=== PATIENT | female | born 1970 | race Caucasian/White ===

== ENCOUNTER 2024-09-07 12:03 | Outpatient (REF) | payer OTHER, SELFPAY | END 2024-09-07 12:04 | disposition home or self-care (01) | LOC: CF 12:03 | DX: Z13.89 Encounter for screening for other disorder (principal) ==

== ENCOUNTER → 2024-09-09 12:47 | Outpatient (AMB) | payer OTHER, SELFPAY | END | disposition home or self-care (01) | PROVIDERS: Referring Provider Physical Medicine & Rehabilitation; Visit Provider Physician Assistant | CPT/HCPCS: 99204 ==

== ENCOUNTER 2024-10-28 13:22 | Outpatient (AMB) | payer OTHER, SELFPAY ==
--- NOTE | 2024-10-28 13:30 | HO.SPINEOV ---
Intake Visit Reasons: MRI f/u with in office Intake Note: Ms. Petty is here today to F/u on the results of her MRI. Communications Instructor Required: No Allergies No Known Allergies Allergy (Verified 10/28/24 13:41) Assessment & Plan Assessment & Plan (1) Back pain: Code(s): M54.9 - Dorsalgia, unspecified Category: Medical Plan Mrs Petty is back in the office in follow-up. We reviewed her new lumbar MRI that she had just a few days ago with the [facility] and compared it to the 1 done last year loaded into our system here at [place] and it shows a reduction in the herniated disc at L5-S1. This is helpful in the sense that it shows that this is most likely the source of her pain, but it takes off the table the more minor procedure we were going to do with a simple diskectomy. Dr. Guzman and I met with her at length discuss the option of an anterior lumbar interbody fusion, all risks and benefits were discussed. We will need her to meet with our access surgeon Dr. Casanova prior to surgery if she wishes to consider it. We quoted success rate at 60-70%. She also has the option to continue with conservative treatment, however she feels as though she has exhausted everything. She will call us and let us know how she would like to proceed. Total amount of time spent in this visit was 20 minutes in discussion of symptoms, lumbar MRI imaging results and subsequent plan of care Hunter Guzman MD,PhD [facility] Orders: Orders XR lumbar spine 4V min Today M54.9 - Dorsalgia, unspecified Coding Level of Care Code Est Pt Level 3 (58723) Diagnoses Back pain M54.9
== END 2024-10-28 15:14 | disposition home or self-care (01) ==
LOC: HO.HNS 13:23
PROVIDERS: Visit Provider Physician Assistant
DX: M54.9 Dorsalgia, unspecified (principal)
CPT/HCPCS: 99213

== ENCOUNTER 2024-10-28 13:22 | Outpatient (REF) | payer OTHER, SELFPAY ==
--- NOTE | ~2024-10-28 | XR_ITS ---
EXAMINATION: XR LUMBAR SPINE 4 OR MORE VIEWS HISTORY: M54.9 - Dorsalgia, unspecified COMPARISON: There are no prior studies for comparison. FINDINGS: AP, and neutral, flexion, and extension lateral views of the lumbar spine are submitted. Osseous mineralization is normal. Five nonrib-bearing lumbar vertebral bodies are identified, maintaining normal height without evidence of fracture or spondylolisthesis. There is mild dextroscoliosis. The intervertebral disc spaces are preserved. There is mild osteophytosis of the facet joints. There is no abnormal motion with flexion or extension The visualized paraspinal soft tissues are unremarkable. XR/XR lumbar spine 4V min IMPRESSION: Mild dextroscoliosis. Otherwise unremarkable examination of the lumbar spine. There is no abnormal motion with flexion or extension. Electronically signed by: Matthew Barksdale MD 10/31/2024 08:37 AM EDT
== END 2024-10-28 13:23 | disposition home or self-care (01) ==
LOC: HO.HOSX 13:22
PROVIDERS: Visit Provider Physician Assistant
DX: M54.9 Dorsalgia, unspecified (principal)
CPT/HCPCS: 72110

== ENCOUNTER → 2024-10-28 14:43 | Outpatient (BNV) | payer OTHER, SELFPAY | PROVIDERS: Visit Provider Radiology Diagnostic Radiology | DX: M54.9 Dorsalgia, unspecified (principal) | CPT/HCPCS: 72110 ==

== ENCOUNTER 2024-12-13 | Outpatient (REF) | payer OTHER, SELFPAY ==
[2024-12-13 13:31] VITALS: BP 115/74; PULSE 72; RESP 18; O2SAT 97; BMI 23.6
--- NOTE | 2024-12-13 13:50 | HO.ANESPROP2 ---
HPI - Anesthesia Eval Consult details Narrative: Pending insurance 54yo M for L5-S1 Ant Lumbar Interbody Fusion, 12/27/24 No recent illness No CP/SOB with walking Seizures: last 20 years ago, rx'd with lamotrigine PMFSH Active Problems Active Problems: All Active Problems Back pain (Acute) Past Medical History Medical History (Updated 12/13/24 @ 13:17 by Kristyn Ariza RN) Kidney stone Migraine Anxiety Seizures History of headache Osteoporosis Leukopenia Condyloma acuminata Cervical dysplasia Right nephrolithiasis Atrophic vaginitis Dyspareunia in female Cervicitis Bacterial vaginosis Degenerative disc disease at L5-S1 level Urine abnormality Family History Family history of problems with anesthesia: No Surgical History Surgical History (Updated 12/13/24 @ 13:17 by Kristyn Ariza RN) Hx of tubal ligation Hx of breast augmentation History of carpal tunnel surgery of left wrist H/O colonoscopy History of Problems with Anesthesia: No Social History Social History Are you a primary assurance services manager health care to a significant other at home: No Do you presently have visiting nurse or other home services: No Patient Tobacco Use Status: Never used Tobacco Use of substances other than those prescribed or required for medical reasons: Yes Substance Use Frequency: Occasionally Have you been hit, kicked, punched, or otherwise hurt by someone within the past year? If so, by whom?: No Are you DNR?: No Advance Directives: No Advance Directives Information Provided: No Advance Directives on File: No Patient : No : No Poor oral hygiene: No Meds Allergies Allergy/AdvReac Type Severity Reaction Status Date / Time No Known Allergies Allergy Verified 10/28/24 13:41 Home Medications ?Medication ?Instructions ?Recorded ?Confirmed ?Last Taken ?Type boron aspartate 3 mg (as 3 mg PO BID 12/13/24 12/13/24 Unknown History aspartate) capsule (Moroni Complex) calcium carbonate 300 mg PO BID 12/13/24 12/13/24 Unknown History cholecalciferol (vitamin D3) 25 25 mcg PO BID 12/13/24 12/13/24 Unknown History mcg (1,000 unit) tablet cyanocobalamin (vitamin B-12) 50 50 mcg PO BID 12/13/24 12/13/24 Unknown History mcg tablet (Vitamin B-12) estradiol 0.01% (0.1 mg/gram) 1 appl vaginal Q OTHER DAY 12/13/24 12/13/24 Unknown History vaginal cream estradiol 0.05 mg-norethindrone 1 patch transdermal 2XW 12/13/24 12/13/24 Unknown History 0.25 mg/24 hr semiwkly transderm patch (CombiPatch) folic acid 1 mg tablet 1 mg PO BID 12/13/24 12/13/24 Unknown History lamotrigine 100 mg tablet 100 mg PO BEDTIME 12/13/24 12/13/24 Unknown History magnesium 100 mg tablet 100 mg PO BID 12/13/24 12/13/24 Unknown History pyridoxine (vitamin B6) 25 mg 25 mg PO BID 12/13/24 12/13/24 Unknown History tablet (Vitamin B-6) rimegepant 75 mg disintegrating 75 mg PO Q OTHER DAY 12/13/24 12/13/24 Unknown History tablet (Nurtec ODT) rizatriptan 10 mg disintegrating 10 mg PO DAILY PRN Headache 12/13/24 12/13/24 Unknown History tablet Exam Height,Weight and Vital Signs: Height 5 ft 3 in Weight 60.328 kg Last Vital Signs Pulse 72 12/13/24 13:31 Resp 18 12/13/24 13:31 BP 115/74 12/13/24 13:31 Pulse Ox 97 12/13/24 13:31 O2 Del Method Room Air 12/13/24 13:31 Airway TM Dist: >3cm Neck ROM: Full Loose/Missing/Broken Teeth: No Heart: RRR Lungs: CTAB Assessment and Plan Assessment Anesthesia Assessment: Anesthesia Plan Discussed and PAT Visit Final Anesthetic Review Family History of Problems with Anesthesia: No History of Problems with Anesthesia: No
[2024-12-13 15:02] LABS: Hematocrit 39.9 % (37.0-47.0); Mean Corpuscular HGB Conc 35.1 g/dl (31.0-35.0); Mean Corpuscular Hemoglobin 31.7 pg (27.0-33.0); Mean Corpuscular Volume 90.3 fL (80.0-98.0); Mean Platelet Volume 10.5 fL (9.4-12.3); Platelet Count 274 X10*3/uL (160-400); Red Blood Count 4.42 X10*6/uL (4.20-5.50); Red Cell Distribution Width 12.1 % (11.0-16.0); White Blood Count 4.8 X10*3/uL (4.8-10.8)
[2024-12-13 15:44] LABS: Anion Gap 12 (12-20); Blood Urea Nitrogen 16 mg/dL (9-16); Calcium 9.6 mg/dL (8.4-10.2); Carbon Dioxide 27 mmol/L (22-29); Chloride 106 mmol/L (96-108); Creatinine Clr Calc Pharmacy 64.9; Estimated Glomerular Filt Rate > 60; Glucose Random 74 mg/dL (60-115); Potassium 4.1 mmol/L (3.3-5.1); Sodium 141 mmol/L (135-145)
--- OUTSIDE RECORDS SUMMARY | 2025-01-30 13:47 | XMS_ITS | Clinical Summary ---
Author Organization [facility] Facility Address [address] [place] [address] Care Team Providers Care Enameler Name Role Phone Pete Patino MD Primary Care Provider [phone] Allergies No known active allergies Medications Rimegepant Sulfate (NURTEC PO) Take by mouth Active LAMOTRIGINE PO Take by mouth Active Estradiol-Noreth indrone Acet (COMBIPATCH TD) Place on the skin Active RIZATRIPTAN BENZOATE PO Take by mouth Active Active Problems Problem Noted Date Diagnosed Date Dorsalgia 11/08/2024 Migraine 11/08/2024 Epilepsy 11/08/2024 Osteoporosis 11/08/2024 Carpal tunnel syndrome 11/08/2024 History of augmentation of breast 11/08/2024 Encounters Date Type Department Care Team Description 12/21/2024 2:00 PM EDT Office Visit [facility] [address] [place] [address] [place] [address] Rosalio Casanova MD Degeneration of lumbar intervertebral disc (Primary Dx) from Last 3 Months Social History Tobacco Use Types Packs/Day Years Used Date Smoking Tobacco: Never Assessed Comments Unknown Sex and Gender Information Value Date Recorded Sex Assigned at Not on file Legal Sex Female 2:37 PM EDT Gender Identity Not on file Sexual Orientation Not on file Plan of Treatment Health Maintenance Due Date Last Done Comments Breast Cancer Screening 1969 Hepatitis B Vaccine (1 of 3 - 19+ 3-dose series) 06/02 Colorectal Cancer Screening: Annual FOBT 2018 Colorectal Cancer Screening: Colonoscopy 2018 Colorectal Cancer Screening: Sigmoidoscopy 2018 Pneumococcal Vaccine: 50+ Years (1 of 1 - PCV) 019 Influenza Vaccine (Season Ended) 2025 Insurance [facility] Care Teams Enameler Relationship Specialty Start Date End Date Pete Patino MD [address] [place] [id number] PCP - General Internal Medicine 12/21/24
== END 2024-12-13 00:01 | disposition home or self-care (01) ==
LOC: HO.PAT
PROVIDERS: Nurse Practitioner; PCP Nurse Practitioner Family; Visit Provider Neurological Surgery
DX: Z01.818 Encounter for other preprocedural examination (principal); M54.16 Radiculopathy, lumbar region; M54.9 Dorsalgia, unspecified
CPT/HCPCS: 36415; 80048; 85027; 86850; 86900; 86901

== ENCOUNTER 2025-05-30 09:28 | Inpatient (IN) | payer OTHER, SELFPAY ==
[2025-05-22 14:43] VITALS: BMI 23.0
[2025-05-30] VITALS (13 sets, daily range): BP systolic 105–129; BP diastolic 53–70; PULSE 74–90; RESP 12–25; TEMP 36.3–36.8; O2SAT 96–99; BMI 23.2; BMI 24.6
--- NOTE | ~2025-05-30 | XR_ITS ---
EXAMINATION: XR ABDOMEN KUB CLINICAL INDICATION: s/p ALIF COMPARISON: None available. TECHNIQUE: AP view of the abdomen. FINDINGS: Gas throughout the nondistended intestine. Stool within the large intestine. No air-fluid levels. Intervertebral disc spacer placement at L5-S1, no fully evaluated. 3 mm calcification overlapping the right kidney shadow. Punctate calcifications overlapping the urinary bladder. Mild degenerative changes in the coxofemoral joints and symphysis pubis. Sclerosis and the right sacroiliac joint. XR/XR abdomen 1V IMPRESSION: No intestinal obstruction pattern. Probable nephrolithiasis, right kidney. Intervertebral disc spacer at L5-S1. Electronically signed by: Gamal Dumont MD 05/30/2025 01:48 PM EDT
--- NOTE | ~2025-05-30 | FL_ITS ---
EXAMINATION: FL GUIDANCE ONLY HISTORY: L5-S1 ALIF COMPARISON: Correlation is made with plain films of the lumbar spine dated 10/20/2024. TECHNIQUE: Fluoroscopy time: 49.6 seconds. Cumulative Dose: 21.158 mGy. DAP: 6.5181 Gycm2 Images: 6. FINDINGS: Fluoroscopic spot films of the lumbar spine demonstrate posterior fusion of L5 and S1 with pedicle screws, spinal stabilization rods, and an intervertebral spacer. FL/FL guidance in OR IMPRESSION: Fluoroscopy during procedure. Please see procedure report for additional information. Electronically signed by: Matthew Barksdale MD 05/30/2025 03:56 PM EDT
--- NOTE | 2025-05-30 09:41 | PC.NURSE ---
Patient carter Estradiol patch to right lower abdomen. Ok per surgeon.
[2025-05-30] MEDS: Lactated Ringers 1,000 ML 100 ML IVCONT ×2 (10:02→21:18)
--- OUTSIDE RECORDS SUMMARY | 2025-05-30 10:57 | XMS_ITS | Clinical Summary ---
Author Organization [facility] Facility Address [address] [place] [id number] Care Team Providers Care Special Events Driver Name Role Phone Peet Patino MD Primary Care Provider [phone] Allergies No known active allergies Medications Rimegepant Sulfate (NURTEC PO) Take by mouth Active LAMOTRIGINE PO Take by mouth Active Estradiol-Noreth indrone Acet (COMBIPATCH TD) Place on the skin Active RIZATRIPTAN BENZOATE PO Take by mouth Active Active Problems Problem Noted Date Diagnosed Date Dorsalgia 11/08/2024 Migraine 11/08/2024 Epilepsy 11/08/2024 Osteoporosis 11/08/2024 Carpal tunnel syndrome 11/08/2024 History of augmentation of breast 11/08/2024 Social History Tobacco Use Types Packs/Day Years Used Date Smoking Tobacco: Never Assessed Comments Unknown Sex and Gender Information Value Date Recorded Sex Assigned at Not on file Legal Sex Female 2:37 PM EDT Gender Identity Female 05/28/2025 8:19 AM EDT Sexual Orientation Not on file Plan of Treatment Upcoming Encounters Date Type Department Care Team (Late st Contact Info) Description 05/30/2025 11:00 AM EDT Scheduled Only [facility] [address] [place] [id number] Rosalio Casanova MD [address] [place] [address] Health Maintenance Due Date Last Done Comments Breast Cancer Screening 1969 Hepatitis B Vaccine (1 of 3 - 19+ 3-dose series) 06/02 Colorectal Cancer Screening: Annual FOBT 2018 Colorectal Cancer Screening: Colonoscopy 2018 Colorectal Cancer Screening: Sigmoidoscopy 2018 Pneumococcal Vaccine: 50+ Years (1 of 1 - PCV) 019 Influenza Vaccine (#1) [address] [place] [address] Care Teams Special Events Driver Relationship Specialty Start Date End Date Pete Patino MD [address] [place] [id number] PCP - General Internal Medicine 12/21/24
--- NOTE | 2025-05-30 11:15 | HO.ANESPROP2 ---
Documented by User: Jen Burno NP 05/22/25 14:34 HPI - Anesthesia Eval Consult details Narrative: 54yo M for L5-S1 Ant Lumbar Interbody Fusion, 05/30/25 Previous PAT eval 12/2024 (rescheduled d/t insurance) No recent illness No CP/SOB with walking Seizures: last 20 years ago, rx'd with lamotrigine PMFSH Active Problems Active Problems: All Active Problems Back pain (Acute) Past Medical History Medical History Kidney stone Migraine Anxiety Seizures History of headache Osteoporosis Leukopenia Condyloma acuminata Cervical dysplasia Right nephrolithiasis Atrophic vaginitis Dyspareunia in female Cervicitis Bacterial vaginosis Degenerative disc disease at L5-S1 level Urine abnormality Family History Family history of problems with anesthesia: No Surgical History Surgical History Hx of tubal ligation Hx of breast augmentation History of carpal tunnel surgery of left wrist H/O colonoscopy History of Problems with Anesthesia: No Social History Social History Household Members: None Housing: Apartment Are you a primary wound care coordinator to a significant other at home: No Do you presently have visiting nurse or other home services: No Patient Tobacco Use Status: Never used Tobacco Second Hand Smoke Exposure: No Use of substances other than those prescribed or required for medical reasons: Yes Substance Use Type Other:: vapes marijuana Substance Use Frequency: Occasionally Have you been hit, kicked, punched, or otherwise hurt by someone within the past year? If so, by whom?: No Are you DNR?: No Advance Directives: No Advance Directives Information Provided: Yes Advance Directives on File: No Healthcare Proxy: No Patient : No : No Poor oral hygiene: No Meds Allergies Allergy/AdvReac Type Severity Reaction Status Date / Time No Known Allergies Allergy Verified 05/22/25 14:42 Home Medications ?Medication ?Instructions ?Recorded ?Confirmed ?Last Taken ?Type estradiol 0.01% (0.1 mg/gram) 1 appl vaginal Q OTHER DAY 12/13/24 05/22/25 05/23/25 History vaginal cream lamotrigine 100 mg tablet 100 mg PO BEDTIME 12/13/24 05/22/25 05/29/25 History rimegepant 75 mg disintegrating 75 mg PO Q OTHER DAY 12/13/24 05/22/25 05/29/25 History tablet (Nurtec ODT) rizatriptan 10 mg disintegrating 10 mg PO DAILY PRN Headache 12/13/24 05/22/25 05/25/25 History tablet creatine monohydrate 5,000 mg oral 5,000 mg PO DAILY 05/22/25 05/22/25 05/29/25 History powder packet estradiol 0.05 mg/24 hr semiweekly 1 patch transdermal 2XW 05/22/25 05/22/25 05/29/25 History transdermal patch progesterone micronized 100 mg 100 mg PO DAILY 05/22/25 05/22/25 05/29/25 History capsule vitamin D3 125 mcg (5,000 1 cap PO DAILY 05/22/25 05/22/25 05/29/25 History unit)-vitamin K2 100 mcg capsule Exam Pertinent Lab Results Pertinent Lab Results: Laboratory Tests 12/13/24 14:26 WBC 4.8 Hgb 14.0 Hct 39.9 Plt Count 274 Sodium 141 Potassium 4.1 Chloride 106 Carbon Dioxide 27 BUN 16 Creatinine 0.81 Assessment and Plan Assessment Anesthesia Assessment: Chart Reviewed Final Anesthetic Review Family History of Problems with Anesthesia: No History of Problems with Anesthesia: No Documented by User: Ania Delatorre DO 05/30/25 11:18 [facility] Past Medical History Medical History Kidney stone Migraine Anxiety Seizures History of headache Osteoporosis Leukopenia Condyloma acuminata Cervical dysplasia Right nephrolithiasis Atrophic vaginitis Dyspareunia in female Cervicitis Bacterial vaginosis Degenerative disc disease at L5-S1 level Urine abnormality Family History Family history of problems with anesthesia: No Surgical History Surgical History Hx of tubal ligation Hx of breast augmentation History of carpal tunnel surgery of left wrist H/O colonoscopy History of Problems with Anesthesia: No Social History Social History Household Members: None Housing: Apartment Are you a primary wound care coordinator to a significant other at home: No Do you presently have visiting nurse or other home services: No Patient Tobacco Use Status: Never used Tobacco Second Hand Smoke Exposure: No Use of substances other than those prescribed or required for medical reasons: Yes Substance Use Type Other:: vapes marijuana Substance Use Frequency: Occasionally Have you been hit, kicked, punched, or otherwise hurt by someone within the past year? If so, by whom?: No Are you DNR?: No Advance Directives: No Advance Directives Information Provided: Yes Advance Directives on File: No Healthcare Proxy: No Patient : No : No Poor oral hygiene: No Meds Allergies Allergy/AdvReac Type Severity Reaction Status Date / Time No Known Allergies Allergy Verified 05/22/25 14:42 Home Medications ?Medication ?Instructions ?Recorded ?Confirmed ?Last Taken ?Type estradiol 0.01% (0.1 mg/gram) 1 appl vaginal Q OTHER DAY 12/13/24 05/22/25 05/23/25 History vaginal cream lamotrigine 100 mg tablet 100 mg PO BEDTIME 12/13/24 05/22/25 05/29/25 History rimegepant 75 mg disintegrating 75 mg PO Q OTHER DAY 12/13/24 05/22/25 05/29/25 History tablet (Nurtec ODT) rizatriptan 10 mg disintegrating 10 mg PO DAILY PRN Headache 12/13/24 05/22/25 05/25/25 History tablet creatine monohydrate 5,000 mg oral 5,000 mg PO DAILY 05/22/25 05/22/25 05/29/25 History powder packet estradiol 0.05 mg/24 hr semiweekly 1 patch transdermal 2XW 05/22/25 05/22/25 05/29/25 History transdermal patch progesterone micronized 100 mg 100 mg PO DAILY 05/22/25 05/22/25 05/29/25 History capsule vitamin D3 125 mcg (5,000 1 cap PO DAILY 05/22/25 05/22/25 05/29/25 History unit)-vitamin K2 100 mcg capsule Exam Exam Date and Time: 05/30/25 1115 Height,Weight and Vital Signs: Height 5 ft 3 in Weight 59.3 kg Vital Signs Temperature 98.2 F 05/30/25 09:42 Pulse Rate 74 05/30/25 09:42 Respiratory Rate 16 05/30/25 09:42 Blood Pressure 118/66 05/30/25 09:42 Pulse Oximetry 98 05/30/25 09:42 Oxygen Delivery Method Room Air 05/30/25 09:42 Temperature 98.2 F 05/30/25 09:42 Pulse Rate 74 05/30/25 09:42 Respiratory Rate 16 05/30/25 09:42 Blood Pressure 118/66 05/30/25 09:42 Pulse Oximetry 98 05/30/25 09:42 Oxygen Delivery Method Room Air 05/30/25 09:42 Airway Mallampati Class: I TM Dist: >3cm Neck ROM: Full Loose/Missing/Broken Teeth: No (patient denies any loose or broken teeth) Heart: S1S2 Lungs: CTAB Assessment and Plan Assessment Anesthesia Assessment: Anesthesia Plan Discussed and Chart Reviewed Final Anesthetic Review Family History of Problems with Anesthesia: No History of Problems with Anesthesia: No NPO: Yes ASA Class: II Final Preanesthetic Review: No Changes in Pt Med Stat, Meds/Allgs Chart Reviewed, Consent Obtained/Reviewed and Anes Risks/Benef Reviewed Patient Risk: Low Procedure Risk: Intermediate Anesthetic Plan Anesthetic Plan: GA and Agree w/ Assess. and Plan Disposition: Standard PACU
--- NOTE | 2025-05-30 11:15 | MHC.SHP ---
Pre-Procedural Eval Section A - 24 Hr Update-Section A only Date of Service: 05/30/25 The patient is an INPATIENT: No Changes since office visit: No Cold of Flu in the past 2 weeks, No New Medical Problems, No Changes in Medication and No Patient answered all questions Section B - Complete if H&P > 30 days Chief Complaint: s/p L5-S1 ALIF Allergies: Allergies Allergy/AdvReac Type Severity Reaction Status Date / Time No Known Allergies Allergy Verified 05/22/25 14:42 Review of Systems Sugical H&P ROS: Negative: Constitution, Cardiovascular, Respiratory, Neurological, Psychiatric, Hem-Onc, Allergic/Immunologic, Gastrointestinal, Genitourinary, Musculoskeletal, Integumentary, Endocrine and Eyes/Ears/Nose/Throat Exam Surgical H&P Exam: Normal: HEENT, Normal: Heart, Normal: Lungs, Normal: Extremities, Normal: Abdomen, Normal: Skin and Normal: Neurological (awake, alert,oreunted x 3 ) Plan Diagnosis/Plan: Unchanged L5-S1 anterior lumbar interbody fusion Time Spent With Patient Time: Total time managing care of this patient today _4___ minutes.
--- NOTE | 2025-05-30 13:30 | W.PM.OPN ---
Operative Note Operative Note Date of Service: 05/30/25 Narrative: The patient was brought to the operating room, positioned on the table supine and general anesthesia was administered. The abdomen was clipped and then prepped and draped in the usual sterile fashion. After timeout was done, horizontal 6 cm incision was made between the umbilicus and the pubis . It was brought through subcutaneous tissue and both anterior rectus sheaths were open in vertically at the midline and left rectus muscle was mobilized. Inferior epigastric vessels were dissected from the rectus muscle and carefully preserved. The preperitoneal plane was entered, peritoneum was bluntly dissected off the posterior rectus sheath which was divided vertically to enhance the exposure. Round ligament was transected between silk ties. Bookwalter was inserted and peritoneum protected with moist gauzes, Left internal iliac vein was identified and dissection was carried along the medial surface of the vein up to the bifurcation. The middle sacral vessels were transected and L5-S1 disc space was bluntly and sharply dissected using bipolar cautery. The disk space was marked at the midline with a screw. Dr. Guzman then proceeded with the corpectomy and fusion, which will be dictated separately by him. After this was done, hemostasis was checked and was excellent. Gell foam and thrombin was used around the disk space. Left ureter was examined prior to closure and was intact. There was good left external iliac artery pulse. Diluted 0.5% Marcaine was injected in the fascia and subcutaneous tissue. The incision was irrigated and closed by layers using a 0 PDS for the anterior rectus sheath, 3-0 Vicryl for subcutaneous tissue and 4-0 Monocryl for skin. Dermabond and dry dressings were then applied.
--- NOTE | 2025-05-30 14:25 | W.PM.OPN ---
Operative Note Operative Note Date of Service: 05/30/25 Narrative: Preoperative Diagnosis: 1.) Lumbar degenerative disc disease L5-S1; lumbar radiculopathy and back pain Procedure: L5-S1 discectomy, arthrodesis and implantation cage through an anterior lumbar approach (ALIF) ; posterior instrumented fusion L5-S1; allograft Indication for Surgery Lumbar degenerative disc disease Consent Informed Consent was obtained for this operation. I have explained the nature, purpose and benefits of the operation. I have discussed the risks and benefit of the operation including possible complications or adverse events with patient/family. Alternative(s) were discussed with the patient with their relative benefits and risks as well as the consequences of not accepting the operation were included in obtaining consent. Surgeon: GORDON TENORIO MD, PHD Co-surgeon: MANE CASANOVA MD Procedure Assisted By:, Hunter wilson Description of Procedure This 54-year-old female suffering from chronic back pain. MRI shows S1 degenerative disc disease. The patient was offered an anterior lumbar interbody fusion with posterior instrumented L5-S1 fusion. The procedure complications were explained. The patient was consented. The patient was brought to the operating room and endotracheally intubated. The patient was put in a supine position. Prep and drape was done followed by timeout. Dr. Casanova, co-surgeon, provided the access to the L5-S1 disc space through an anterior approach. He was assisted by physician study assistant who performed manual retraction. He will dictate the approach in a separate operative note. When the L5-S1 disc space was exposed I took over the procedure. An annulotomy was done followed by a partial discectomy. Sequential trial implants were inserted and advanced towards the posterior wall of the disc space. I completed the discectomy and prepare the endplates. Then a 34 x 26 x 30 and 15 degree lordosis Astura cage filled with allograft was inserted into the disc space. One screw of 25 mm long was inserted into the S1 vertebral body to secure the implant.. The retractor was removed and hemostasis was done by Dr. Buck who closed the incision. This marked first part of the procedure. Accordingly the patient was turned prone on the Salvatore spine table and 2 C arms were installed for fluoroscopy. Prep and drape was done followed by a second timeout. 2 paramedian incisions were made lateral from the L5-S1 pedicles. The muscle fascia was opened and the musculature was split bluntly to expose the posterolateral gutter. The following steps were taken for pedicle screw placement: The pediguard tap was used to create a transpedicular trajectory into the vertebral body. A K wire was advanced. A specially designed instrument was advanced over the K wire to decorticate the posterolateral gutter. Pedicle screw was advanced after which the K wire was removed. Following the steps pedicle screws were placed in the bilateral L5 and S1 pedicles. Total of 4 screws were placed with the following measurements: 7.5 x 45 mm in bilateral L5 pedicles and 7.5 x 40 mm in the bilateral S1 pedicles. A 40 mm darell was tunneled bilaterally and locked down with locking caps. The extension towers were removed. The posterolateral fusion was completed by laying down allograft in the posterolateral gutter. Hemostasis was done. The paramedian incisions were closed with an 0 Vicryl to fascia and 3-0 Vicryl to subdermal layer. Steri-Strips were used to approximate the incision. An OpSite with Tegaderm was used to cover the incisions. All sponge and needle counts were correct. The patient was extubated and transported in stable condition to recovery room. The physician study assistant was critical for the following aspects of surgery : Building Construction Teacher an anterior part of the fusion, placement of pedicle screws, closure of the anterior incision and paramedian incisions. Anesthesia: General Estimated Blood Loss (ml): 50 Duration of Surgery: 2 hours and 15 Complications: None Postoperative Plan: Admit to inpatient for clinical observation
--- NOTE | 2025-05-30 17:22 | PHA.MEDREC ---
Pharmacy Consult ? Medication Reconciliation Pharmacy has completed the medication reconciliation. Spoke with patient to confirm. Patient currently has an estradiol patch on, applied 05/29/25. Applies these patches on Thursday and . Nurtec is every other day scheduled, last taken this morning. She also takes a collagen supplement.
[2025-05-31 00:25] VITALS: BP 102/54; PULSE 76; RESP 18; TEMP 36.8; O2SAT 96
[2025-05-31 03:39] VITALS: BP 90/52; PULSE 74; RESP 18; TEMP 36.7; O2SAT 96
--- NOTE | 2025-05-31 04:06 | PM.EVENT ---
Event Note Date of Service: 05/31/25 Event Note: Nursing called to notify regarding drop in BP while sleeping, 90/52 with MAP 65, HR 74 NSR, T 98.0 and POX 96 RA. Pt is s/p L5-S1 ALIF with Dr. Lund. Dressing is CDI and pt has no complaints of pain at surgical site or unusual symptoms to include chest pain, WINTER, N/V or abd pain. Pt has been on LR at 100 and will increase to 125 mls and add one 12.5 gms of albumin. No AM labs ordered so will check CBC and BMP to ensure all is well. Currently holding oxy dose of 10 mgs for severe pain. Reviewed POC with nursing. Time Spent With Patient Time: Total time managing care of this patient today ____ minutes.
[2025-05-31] MEDS: Lactated Ringers 1,000 ML 125 ML IVCONT (04:14)
[2025-05-31] MEDS: Albumin Human 25 % 50 ML 100 ML IV (04:15)
[2025-05-31 04:31] LABS: MANUAL DIFF FLAG NO
[2025-05-31 04:32] LABS: Hematocrit 33.6 % (37.0-47.0); Hemoglobin 11.6 g/dl (12.0-16.0); Imm Gran Abs Auto 0.03 X10*3/uL (0.00-0.03); Imm Gran Pct Auto 0.3 % (0.0-0.4); Lymphocytes Absolute Auto 0.8 X10*3/uL (1.2-4.9); Mean Corpuscular HGB Conc 34.5 g/dl (31.0-35.0); Mean Corpuscular Hemoglobin 31.1 pg (27.0-33.0); Mean Corpuscular Volume 90.1 fL (80.0-98.0); NRBC Abs Auto 0.000 X10*3/uL (0.0-0.012); NRBC Pct Auto 0.0 /100WBC (0.0-0.2); Platelet Count 202 X10*3/uL (160-400); Red Blood Count 3.73 X10*6/uL (4.20-5.50); White Blood Count 10.3 X10*3/uL (4.8-10.8)
[2025-05-31 04:49] LABS: Anion Gap 9 (12-20); Blood Urea Nitrogen 13 mg/dL (9-16); Calcium 8.5 mg/dL (8.4-10.2); Carbon Dioxide 25 mmol/L (22-29); Chloride 109 mmol/L (96-108); Creatinine Clr Calc Pharmacy 67.7; Estimated Glomerular Filt Rate > 60; Potassium 4.1 mmol/L (3.3-5.1); Sodium 139 mmol/L (135-145)
--- NOTE | 2025-05-31 05:24 | PC.NURSE ---
Pt's manual BP was 90/52. Per pt she is asymptomatic, saying she feels fine. TELEGRAPH REPEATER TECHNICIAN notified at 03:55. LR increased to 125ml/hr and one time albumin ordered and administered.
[2025-05-31 05:47] VITALS: BP 104/56
[2025-05-31] MEDS: oxyCODONE HCl Immed Release 5 MG TABLET PO ×2 (07:28→11:34)
--- NOTE | 2025-05-31 07:34 | P.DS_ITS ---
DS: Providers Provider Date of Service: 05/31/25 Date of admission: 05/30/25 09:28 Date of discharge: 05/31/25 Primary care physician: Renée De La Rosa NP DS: Summary Time Attestation Discharge Coordination Time (in mins): 14 Quality: Safe Use of Opioids Does Pt have an Active Cancer Diagnosis on the Problem List?: No Quality: Stroke Does the patient have a stroke diagnosis?: No Physical Exam Vital Signs: Vital Signs: Last Vital Signs Temp 98.0 F 05/31/25 03:39 Pulse 74 05/31/25 03:39 Resp 18 05/31/25 03:39 BP 104/56 L 05/31/25 05:47 Pulse Ox 96 05/31/25 03:39 O2 Del Method Room Air 05/31/25 03:39 O2 Flow Rate 6 05/30/25 14:59 BMI result Body Mass Index 24.6 DS: Data Data Completed and Pending Labs on day of discharge: Laboratory Results - last 24 hr 05/30/25 05/31/25 09:44 04:23 WBC 10.3 RBC 3.73 L Hgb 11.6 L Hct 33.6 L MCV 90.1 MCH 31.1 MCHC 34.5 RDW 11.8 Plt Count 202 D MPV 9.8 Immature Gran % (Auto) 0.3 Neut % (Auto) 84.1 H Lymph % (Auto) 7.5 L [place] % (Auto) 7.9 Eos % (Auto) 0.0 Baso % (Auto) 0.2 Lymph # (Auto) 0.8 L [place] # (Auto) 0.8 Eos # (Auto) 0.0 Baso # (Auto) 0.0 Abs Immat Gran (auto) 0.03 Absolute Neuts (auto) 8.7 H Absolute Nucleated RBC 0.000 Nucleated RBC % (auto) 0.0 Sodium 139 Potassium 4.1 Chloride 109 H Carbon Dioxide 25 Anion Gap 9 L BUN 13 Creatinine 0.84 Estim Creat Clear Calc 67.7 Estimated GFR > 60 Random Glucose 109 Calcium 8.5 D Blood Type O Positive Antibody Screen NEGATIVE Discharge Plan Discharge Anticipated Discharge Date/Time: 05/31/25 07:35 Patient Disposition: Home, Self-Care Discharge Diagnosis: s/p L5-S1 ALIF Referrals: Renée De La Rosa NP [Primary Care Provider, Family Practice] - 1 Week Discharge Medications: New oxycodone 5 mg tablet See Rx Instructions .ROUTE .COMPLEX PRN (Reason: pain) Qty: 30 0RF Rx Instructions: Take 1-2 tablets by mouth every 4 hours; Partial Fill upon patient request. Continued rizatriptan 10 mg tablet,disintegrating 10 mg PO DAILY PRN (Reason: Headache) estradiol 0.01 % (0.1 mg/gram) cream 1 appl vaginal Q OTHER DAY lamotrigine 100 mg tablet 100 mg PO BEDTIME Nurtec ODT 75 mg Tablet,Disintegrating 75 mg PO Q OTHER DAY progesterone micronized 100 mg capsule 100 mg PO DAILY estradiol 0.05 mg/24 hr Patch Semiweekly 1 patch TRANSDERMAL MOTH Patient Comments: 05/30/25: Patient currently has patch on, applied 05/29 Rx Instructions: apply 1 patch for 3 days alternating with 1 patch for 4 days each week for 3 wks per 4-wk cycle creatine monohydrate 5,000 mg Powder In Packet 5,000 mg PO DAILY vitamin D3-vitamin K2 125 mcg (5,000 unit)-100 mcg Capsule 1 cap PO DAILY tretinoin 0.05 % cream 1 appl topical BEDTIME Discharge Orders: Discharge Order (Routine); Ordered 05/31/25 Ordered By: Bill Brooks Diet: Advance to usual diet Activity on Discharge: As tolerated Stand Alone Forms: Patient Portal Discharge page Print Language: Vietnamese Activity Restrictions/Additional Instructions: After your spinal surgery we ask you to observe the following restrictions/guidelines: Activity: It is normal to feel some discomfort as you increase your activity, but that will improve with time. We ask you avoid heavy lifting or acitivities that cause pain. As a general rule, 8lbs is a safe limit for lifting right after surgery. Walk as much as you feel comfortable but not to exhaustion. You will feel extra tired the first few days after surgery. Stay well hydrated. It is OK to walk up and down stairs You may return to driving when you are off narcotics (such as vicodin, oxycodone, dilaudid, etc), and you are back to normal functional capacity. If you have any concerns please check with office before driving. Return to work is specific to each patient and each surgery, so please speak with your doctor/PA at first follow up. Please bring paperwork such as FMLA at that time if you need it filled out. Medications: We recommend you take 500mg Tylenol every 4 hours for the first week after surgery, if you do not have any liver issues and can tolerate this medication. Do not exceed 4,000mg daily. We also recommend you take Ibuprofen 600mg every 8 hours for the first week after surgery starting on post op day 1, ?if you do not have any kidney or sugar control issues and can tolerate this medication. Do not exceed 2,000mg daily. We will give you a short supply of narcotics after surgery (usually one weeks worth). If you need more please call the office but do not use more than prescribed. You will need to give our office 48 hours notice if you need narcotics refilled and we do not fill narcotics on weekends or evenings. If you are on a narcotic, it is a good idea to take a stool softener such as colace or senna to avoid constipation If you take blood thinner such as aspirin, Plavix, Coumadin, Effient, Eliquis etc for conditions such as Afib, DVT, Pulmonary embolus, coronary disease, stents etc please speak with your surgeon about specific details as to when you can resume these medications. You can resume NSAIDs on post op day 1 (eg: Motrin, Naproxen, etc). Follow up: Please call the office, , after surgery to arrange a 3 week follow up for wound check. Wound Care: You may remove your dressing on the first day after surgery. ?You may ?leave open to air. Please do not remove the steri strips underneath. they will fall off on their own in one week. IT IS NORMAL FOR THE WOUND TO OOZE OR BE BLOODY FOR A FEW DAYS AFTER SURGERY. ?IF THIS HAPPENS JUST PLACE NEW DRESSING OVER IT TO AVOID STAINING CLOTHES. You may shower on post op day # 1 We ask that you do not let the water soak the wound. If it does get wet, just towel dry lightly. Please do not scrub your incision or place any type of chemical/ointment on the wound. No tub baths, pools or jacuzzis for one month. If you have any leaking or redness from your wound, or fevers, please call the office. Care Plan Goals: Return to normal activity as tolerated Health Concerns: None Plan of Treatment: Follow-up in clinic in 2-3 weeks Assessment: POD: 1 Procedure: L5-S1 ALIF Vanesa is a pleasant 54 y/o female who underwent L5-S1 ALIF with Dr. Guzman yesterday. She reports that overall she is doing very well since her surgery. She reports she is up walking around is otherwise doing well. She feels her sym ptoms are much better than pre-operatively. She still reports mild pain in her low back, with good relief with pain medication. She has been up OOB and is voiding well, tolerating diet. Afebrile, vital signs stable. Full strength 5/5 in bilateral lower extremities. Back dressings are dry without signs of hematoma. No active sanguineous drainage. A Plan: Patient meets criteria to be medically discharged home. She was seen at bedside with Dr. Guzman. I will send in a prescription for oxycodone to the pharmacy here at [facility].
--- NOTE | 2025-05-31 07:39 | HO.NEURO.PN ---
Neurosurgery Operative Note Date of Service: 05/31/25 Narrative: POD: 1 Procedure: L5-S1 ALICarol Alexis is a pleasant 54 y/o female who underwent L5-S1 ALIF with Dr. Guzman yesterday. She reports that overall she is doing very well since her surgery. She reports she is up walking around is otherwise doing well. She feels her symptoms are much better than pre-operatively. She still reports mild pain in her low back, with good relief with pain medication. She has been up OOB and is voiding well, tolerating diet. Afebrile, vital signs stable. Full strength 5/5 in bilateral lower extremities. Back dressings are dry without signs of hematoma. No active sanguineous drainage. A Plan: Patient meets criteria to be medically discharged home. She was seen at bedside with Dr. Guzman. I will send in a prescription for oxycodone to the pharmacy here at [facility].
[2025-05-31 08:00] VITALS: BP 112/58; PULSE 68; RESP 17; TEMP 36.9; O2SAT 97
--- NOTE | 2025-05-31 08:31 | HO.POSTANES ---
Post Anesthesia Evaluation Post Anesthesia Evaluation Date of Service: 05/31/25 Vital Signs: Vital Signs Temp Pulse Resp BP Pulse Ox O2 Del Method 05/31/25 08:00 98.5 F 68 17 112/58 L 97 Room Air 05/31/25 05:47 104/56 L 05/31/25 03:39 98.0 F 74 18 90/52 L 96 Room Air 05/31/25 00:25 98.3 F 76 18 102/54 L 96 Room Air Anesthesia: General Mental Status: Awake Pain Control: Satisfactory Nausea/Vomiting: None Hydration: Adequate Anesthesia-Related Issues: No Anes. Related Issues
--- NOTE | 2025-05-31 08:44 | MHC.CM.PN ---
pt dcd home self care
--- NOTE | 2025-05-31 09:05 | MHC.CM.PN ---
pt dcd self care prior to being seen bt lucy
== END 2025-05-31 12:05 | disposition home or self-care (01) | DRG 304 ==
LOC: HO.SSSA 12:26 → HO.S3 15:29
PROVIDERS: Neurological Surgery; Nurse Practitioner Family; Admitting Provider Physician Assistant; PCP Nurse Practitioner Family; Visit Provider Physician Assistant
PROC: 0SG30A0 Fusion of Lumbosacral Joint with Interbody Fusion Device, Anterior Approach, Anterior Column, Open Approach (ICD-10-PCS; principal; 2025-05-30 11:40)
DX: M51.370 Other intervertebral disc degeneration, lumbosacral region with discogenic back pain only (principal); I95.9 Hypotension, unspecified; Z79.899 Other long term (current) drug therapy
CPT/HCPCS: 36415; 74018; 80048; 85025; 86850; 86900; 86901; 97161; C1713; J0131; J0690; J1100; J1171; J1885; J2003; J2371; J2704; J2710; J3010; J7120; L8699; P9047

== ENCOUNTER 2025-05-30 09:28 | Outpatient (BNV) | payer OTHER, SELFPAY | END 2025-05-30 13:00 | PROVIDERS: Admitting Provider Physician Assistant; PCP Nurse Practitioner Family; Visit Provider Radiology Diagnostic Radiology | DX: M51.27 Other intervertebral disc displacement, lumbosacral region (principal); Z98.1 Arthrodesis status | CPT/HCPCS: 74018 ==

== ENCOUNTER → 2025-05-30 09:28 | Outpatient (BNV) | payer OTHER, SELFPAY | PROVIDERS: Admitting Provider Physician Assistant; PCP Nurse Practitioner Family; Visit Provider Surgery | DX: Z48.89 Encounter for other specified surgical aftercare (principal) | CPT/HCPCS: 20930; 22558; 22612; 22840; 22853; 64450; 99024; 99499 ==

== ENCOUNTER 2025-06-20 13:47 | Outpatient (AMB) | payer OTHER, SELFPAY ==
--- NOTE | 2025-06-20 13:50 | A.SPINEOV_ITS ---
Intake Visit Reasons: 1st post op Intake Note: Ms. Petty is here today for her 1st post op. Book Trimmer Required: No Allergies No Known Allergies Allergy (Verified 05/22/25 14:42) Assessment & Plan Assessment & Plan (1) S/P lumbar fusion: Code(s): Z98.1 - Arthrodesis status Category: Surgical Plan Procedure: L5-S1 ALIF Vanesa comes in today for her 1st postop visit after having L5-S1 ALIF completed by Dr. Guzman a few weeks ago. She reports that overall she has been doing very well since her surgery, and states that her pain has significantly improved compared to her preoperative state. She does still get the occasional discomfort/aches/pains in her low back and legs with prolonged standing or activity. Given this, she is still able to complete all of her activities of daily living without much issue. She asked many questions regarding the postoperative healing course, all of which I answered to the best of my ability. I recommended that in lieu of formal exercise routines at the gym with a fleet maintenance manager that she instead set a goal to walk approximately 1 mi per day alongside completing her back to her activities of daily living. No new neurological deficits. The patient ambulates well and rises from a seated position without difficulty. Her anterior and posterior incision sites are closed and well healed. I removed a single Steri-Strips from her Pfannenstiel abdominal incision. I would like to follow up with Vanesa again in 6 weeks for a 2nd postoperative visit with a set of x-rays. At the conclusion of this visit I also filled out her P FMLA paperwork for her. Bill Guzman MD,PhD [facility] Coding Level of Care Code Global (84570) Diagnoses S/P lumbar fusion Z98.1
--- OUTSIDE RECORDS SUMMARY | 2025-06-21 07:28 | XMS_ITS | Clinical Summary ---
Author Organization [facility] Facility Address [address] [address] Care Team Providers Care Banbury Operator Name Role Phone Pete Patino MD Primary Care Provider [phone] Allergies No known active allergies Medications Rimegepant [...] PCV) 019 Influenza Vaccine (#1) 2025 Insurance [facility] Care Teams Banbury Operator Relationship Specialty Start Date End Date Pete Patino MD [address] [place] [id number] PCP - General Internal Medicine 12/21/24
== END 2025-06-20 14:17 | disposition home or self-care (01) ==
LOC: HO.HNS 13:47
PROVIDERS: PCP Nurse Practitioner Family; Visit Provider Physician Assistant
DX: Z98.1 Arthrodesis status (principal)
CPT/HCPCS: 99024

== ENCOUNTER → 2025-06-20 13:47 | Outpatient (BNVA) | payer OTHER, SELFPAY | PROVIDERS: PCP Nurse Practitioner Family; Visit Provider Physician Assistant | DX: Z98.1 Arthrodesis status (principal) | CPT/HCPCS: 99212 ==

== ENCOUNTER 2025-08-02 10:12 | Outpatient (REF) | payer OTHER, SELFPAY ==
--- NOTE | ~2025-08-02 | XR_ITS ---
EXAMINATION: XR LUMBAR SPINE 4 OR MORE VIEWS HISTORY: Z98.1 - Arthrodesis status COMPARISON: Comparison is made with the prior examination dated 10/20/2024. FINDINGS: AP, and neutral, flexion, and extension lateral views of the lumbar spine are submitted. Osseous mineralization is normal. In the interval since the prior study, the patient is status post posterior fusion of L5 and S1 with pedicle screws, spinal stabilization rods, and an intervertebral spacer. Alignment is anatomic. The vertebral bodies maintain normal height. The hardware is intact. There is no radiographic evidence of loosening. The intervertebral disc spaces are maintained. There is no abnormal motion with flexion or extension. The visualized paraspinal soft tissues are unremarkable. XR/XR lumbar spine 4V min IMPRESSION: Status post posterior fusion of L5 and S1. No abnormal motion is seen with flexion or extension. Electronically signed by: Matthew Barksdale MD 08/02/2025 01:45 PM [facility]
--- OUTSIDE RECORDS SUMMARY | 2025-08-04 10:37 | XMS_ITS | Clinical Summary ---
Author Organization [facility] Address [address] [place] [address] Care Team Providers Care Crop Specialist Name Role Phone Pete James Primary Care Provider [phone] Allergies No known active allergies Medications topiramate (TOPAMAX) 100 MG tablet Take 100 mg by mouth daily. Active divalproex ER (DEPAKOTE ER) 500 MG 24 hr tablet Take 500 mg by mouth daily. Active rizatriptan (MAXALT) 10 MG tablet Take 10 mg by mouth as needed for migraine. May repeat in 2 hours if needed Active ondansetron (ZOFRAN ODT) 4 MG disintegrating tablet Take 1 tablet (4 mg total) by mouth every 8 hours as needed for nausea. 8 tablet 9 Active Social History Tobacco Use Types Packs/Day Years Used Date Smoking Tobacco: Never Smokeless Tobacco: Never Alcohol Use Standard Drinks/Week Comments Yes 0 (1 standard drink = 0.6 oz pur e alcohol) Comments Unknown Sex and Gender Information Value Date Recorded Sex Assigned at Not on file Legal Sex Female 9:59 AM EDT Gender Identity Not on file Sexual Orientation Not on file Last Filed Vital Signs Vital Sign Reading Time Taken Comments Blood Pressure 104/71 05/28/2019 1:52 PM EDT Pulse 90 05/28/2019 1:52 PM EDT Temperature 36.6 C (97.8 F) 05/28/2019 10:00 AM EDT Respiratory Rate 16 05/28/2019 10:00 AM EDT Oxygen Saturation 98% 05/28/2019 1:52 PM EDT Inhaled Oxygen Concentration - - Weight - - Height 165.1 cm (5' 5 ) 05/28/2019 10:00 AM EDT Body Mass Index - - Plan of Treatment Not on file Insurance Care Teams Crop Specialist Relationship Specialty Start Date End Date Pete James [address] [place] [id number] PCP - General 05/28/19
--- OUTSIDE RECORDS SUMMARY | 2025-08-04 10:37 | XMS_ITS | Clinical Summary ---
Author Organization [facility] Facility Address [address] [address] Care Team Providers Care Security Inspector Name Role Phone Pete Patino MD Primary Care Provider [phone] Allergies No known active allergies Medications Rimegepant [...] PCV) 019 Influenza Vaccine (#1) 2025 Insurance [facility] Care Teams Security Inspector Relationship Specialty Start Date End Date Pete Patino MD [address] [place] [id number] PCP - General Internal Medicine 12/21/24
== END 2025-08-02 10:13 | disposition home or self-care (01) ==
LOC: HO.HOSX 10:12
PROVIDERS: Visit Provider Physician Assistant
DX: Z98.1 Arthrodesis status (principal)
CPT/HCPCS: 72110; 99212

== ENCOUNTER 2025-08-02 13:02 | Outpatient (AMB) | payer OTHER, SELFPAY ==
--- NOTE | 2025-08-02 13:05 | A.SPINEOV_ITS ---
Intake Visit Reasons: 2nd post op with xrays Intake Note: Ms. Petty is here today for 2nd post op x-rays. Director Of Direct Marketing Required: No Allergies No Known Allergies Allergy (Verified 05/22/25 14:42) Assessment & Plan Assessment & Plan (1) S/P lumbar fusion: Code(s): Z98.1 - Arthrodesis status Category: Surgical Plan Mrs Petty is 2 months out from her anterior lumbar interbody fusion. She continues to do well and has had excellent improvement in her preoperative low back pain. The patient does report some upper lumbar to lower thoracic pain at times. She is excited to get back to doing a lot of her activities, like yoga on some things at the gym. We talked about the need to be cautious and avoid extreme range of motions, twisting extreme bending etc. in order to let the fusion heal. I think she is going to do great. Her x-rays today look excellent. I will have her come back for final postoperative visit in 2 months with a set of x-rays and if everything looks good there I will release her back to doing her activities as tolerated. I did give her a referral to PT just to do some gentle exercises to try to help her get back to some of the activity she enjoys. I urged her against doing any stretching or yoga at this point. Hunter Guzman MD, PhD [facility] Orders: Orders PT Evaluation and Treatment Today Z98.1 - Arthrodesis status XR lumbar spine 4V min 2 Months Z98.1 - Arthrodesis status XR lumbar spine 4V min Today Z98.1 - Arthrodesis status Coding Level of Care Code Global (83270) Diagnoses S/P lumbar fusion Z98.1
--- OUTSIDE RECORDS SUMMARY | 2025-08-02 14:34 | XMS_ITS | Clinical Summary ---
Author Organization [facility] Facility Address [address] [address] Care Team Providers Care Carriage Dogger Name Role Phone Pete Patino MD Primary Care Provider [phone] Allergies No known active allergies Medications Rimegepant [...] PCV) 019 Influenza Vaccine (#1) 2025 Insurance [facility] Care Teams Carriage Dogger Relationship Specialty Start Date End Date Pete Patino MD [address] [place] [id number] PCP - General Internal Medicine 12/21/24
== END 2025-08-02 14:02 | disposition home or self-care (01) ==
LOC: HO.HNS 13:03
PROVIDERS: PCP Nurse Practitioner Family; Visit Provider Physician Assistant
DX: Z98.1 Arthrodesis status (principal)
CPT/HCPCS: 99024

== ENCOUNTER → 2025-08-02 13:06 | Outpatient (BNV) | payer OTHER, SELFPAY | PROVIDERS: Visit Provider Radiology Diagnostic Radiology | DX: Z98.1 Arthrodesis status (principal) | CPT/HCPCS: 72110 ==